=== PATIENT | male | born 1995 | race Native Hawaiian/Other Pacific Islander ===

== ENCOUNTER 2022-03-03 08:45 | Outpatient (CLI) | payer OTHER ==
[2022-03-03 09:57] LABS: POTASSIUM 4.2 mmol/L (3.6-5.2)
[2022-03-03 10:05] LABS: PLATELET COUNT 227 K/uL (142-355)
== END 2022-03-03 18:53 | disposition home or self-care (01) ==
LOC: LABW 08:45
PROVIDERS: ATTEND Physician Assistant
DX: Z00.00 Encounter for general adult medical examination without abnormal findings (principal); R53.83 Other fatigue
CPT/HCPCS: 36415; 80053; 80061; 82306; 82607; 83036; 84153; 84403; 84436; 84443; 85027

== ENCOUNTER 2022-08-30 08:40 | Outpatient (CLI) | payer OTHER | END 2022-08-30 18:57 | disposition home or self-care (01) | LOC: RAD 08:40 | PROVIDERS: ATTEND Physician Assistant | DX: M25.521 Pain in right elbow (principal) ==

== ENCOUNTER 2022-10-18 14:24 | Outpatient (CLI) | payer OTHER | END 2022-10-18 19:05 | disposition home or self-care (01) | LOC: MRI 14:24 | PROVIDERS: ATTEND Orthopaedic Surgery | DX: M25.521 Pain in right elbow (principal); S50.01XA Contusion of right elbow, initial encounter; S56.512A Strain of other extensor muscle, fascia and tendon at forearm level, left arm, initial encounter; Y92.89 Other specified places as the place of occurrence of the external cause ==

== ENCOUNTER 2023-01-14 11:44 | Emergency (ER) | payer OTHER ==
[~2023-01-14] VITALS: Ht 177.8 cm; Wt 102.1 kg
[2023-01-14 11:50] VITALS: BP 123/80; TEMP 97.2
== END 2023-01-14 12:32 | disposition home or self-care (01) ==
LOC: ED 11:44
DX: M79.671 Pain in right foot (principal)
CPT/HCPCS: 96372; 99283; J1100; J1885